=== PATIENT | male | born 1955 | race Caucasian/White ===

== ENCOUNTER 2021-04-22 09:16 | Inpatient (IN) ==
[2021-04-22] MEDS ORDERED: Naloxone 0.4 MG/ML INJ IVP PRN (11:38)
[2021-04-22] MEDS ORDERED: Ondansetron ODT 4 MG TAB.RAPDIS SL PRN (11:38)
[2021-04-22] MEDS ORDERED: Mag Hydrox/Al Hydrox/Simeth 30 ML UDC PO PRN (11:38)
[2021-04-22] MEDS ORDERED: D5% in Water 1,000 ML IVC PRN (12:37)
[2021-04-22] MEDS ORDERED: *HR* Dextrose 50 % in Water (Syg) 50 ML SYRINGE IVP PRN (12:37)
[2021-04-22] MEDS ORDERED: Dextrose Gel 15 GM/37.5 ML TUBE PO PRN ×2 (12:37)
[2021-04-22] MEDS: 0.9 % Sodium Chloride 1,000 ML IVC SCH ×2 (12:54→21:59)
[2021-04-22 12:58] LABS: INR 1.2; Prothrombin Time 13.2 Seconds (9.4-12.1)
[2021-04-22] MEDS: carvediloL 25 MG TABLET PO SCH (17:27)
[2021-04-22] MEDS: *HR* Heparin 5,000 UNIT/ML VIAL SQ SCH (17:27)
[2021-04-22] MEDS: Insulin LISPRO 300 UNITS/3 ML VIAL SUBQ SCH (17:31)
[2021-04-22] MEDS ORDERED: Melatonin 3 MG TABLET PO PRN (21:00)
[2021-04-23] MEDS: Insulin LISPRO 300 UNITS/3 ML VIAL SUBQ SCH ×4 (00:15→17:54)
[2021-04-23 01:04] LABS: Basophils # 0.1 K/mcL (0.0-0.2); Basophils % 1.1 %; Eosinophils # 0.8 K/mcL (0.0-0.6); Eosinophils % 8.3 %; Hematocrit 35.8 % (37.5-50.1); Hemoglobin 11.6 g/dL (12.9-16.9); Immature Granulocytes % 0.5 % (0-4); Lymphocytes # 1.5 K/mcL (0.6-4.6); Lymphocytes % 16.6 %; Mean Corpuscular HGB Conc 32.4 g/dL (31.6-35.5); Mean Corpuscular Volume 98.6 fL (83.0-100.0); Monocytes # 0.6 K/mcL (0.0-1.3); Monocytes % 6.8 %; Neutrophils # 6.2 K/mcL (1.6-8.9); Platelet Count 237 K/mcL (140-400); Red Blood Count 3.63 M/mcL (4.19-5.50); Segmented Neutrophils % 66.7 %; White Blood Count 9.3 K/mcL (4.3-11.1)
[2021-04-23 01:20] LABS: Alanine Aminotransferase 10 Units/L (7-52); Albumin 3.5 g/dL (3.5-5.7); Albumin/Globulin Ratio 1.3 (1.1-2.2); Alkaline Phosphatase 181 Units/L (34-104); Aspartate Amino Transferase 31 Units/L (13-39); BUN/Creatinine Ratio 4 (6-26); Bilirubin,Total 0.7 mg/dL (0.3-1.0); Blood Urea Nitrogen 3 mg/dL (8-23); Calcium 8.6 mg/dL (8.6-10.3); Carbon Dioxide 24 mEq/L (23-29); Chloride 107 mEq/L (98-107); Globulin 2.8 g/dL (2.4-3.5); Glucose 94 mg/dL (70-105); Osmolality,Calculated 278 (280-300); Potassium 3.8 mEq/L (3.5-5.1); Sodium 136 mEq/L (136-145); Total Protein 6.3 g/dL (6.4-8.9); eGFR For African Americans > 60 (> 60); eGFR For Non-African Americans > 60 (> 60)
[2021-04-23] MEDS: *HR* Heparin 5,000 UNIT/ML VIAL SQ SCH ×2 (06:18→18:14)
[2021-04-23] MEDS: amLODIPine 5 MG TABLET PO SCH (08:19)
[2021-04-23] MEDS: carvediloL 25 MG TABLET PO SCH ×2 (08:19→18:13)
[2021-04-23] MEDS: Aspirin Enteric Coated 81 MG Tablet PO SCH (08:20)
[2021-04-23] MEDS: Cyanocobalamin (B-12) 1,000 MCG TABLET PO SCH (08:20)
[2021-04-23] MEDS ORDERED: *HR* FentaNYL (PF) 100 MCG/2 ML VIAL IVP ONE (11:09)
[2021-04-23] MEDS ORDERED: *HR* Midazolam HCl 2 MG/2 ML VIAL IVP ONE (11:09)
[2021-04-23] MEDS ORDERED: *HR* Propofol 200 MG/20 ML VIAL IVP ONE (12:45)
[2021-04-23] MEDS ORDERED: *HR* Succinylcholine 200 MG/10 ML VIAL IVP ONE (12:48)
[2021-04-23] MEDS ORDERED: *HR* Rocuronium Bromide 50 MG/5 ML VIAL ONE (12:48)
[2021-04-23] MEDS ORDERED: Lidocaine -MPF 2% 5 ML VIAL ONE (12:48)
[2021-04-23] MEDS ORDERED: Lidocaine -MPF 4% 5 ML AMPUL ONE (13:06)
[2021-04-23] MEDS ORDERED: Ondansetron 4 MG/2 ML VIAL ONE (13:50)
[2021-04-23] MEDS: *HR* OxyCODONE ER (12 HR) 10 MG TABLET PO SCH (18:13)
[2021-04-23] MEDS ORDERED: polyethylene glycoL 3350 17 GM POWD.PACK PO PRN (18:41)
[2021-04-23] MEDS ORDERED: Insulin LISPRO 300 UNITS/3 ML VIAL SUBQ SCH (21:00)
[2021-04-24 03:25] LABS: Basophils # 0.1 K/mcL (0.0-0.2); Basophils % 0.6 %; Eosinophils % 0.4 %; Hematocrit 33.4 % (37.5-50.1); Hemoglobin 10.8 g/dL (12.9-16.9); Immature Granulocytes % 0.6 % (0-4); Lymphocytes # 0.8 K/mcL (0.6-4.6); Lymphocytes % 10.1 %; Mean Corpuscular HGB Conc 32.3 g/dL (31.6-35.5); Mean Corpuscular Hemoglobin 32.1 pg (28.0-33.3); Mean Corpuscular Volume 99.4 fL (83.0-100.0); Mean Platelet Volume 10.1 fL (9.4-12.4); Monocytes # 0.4 K/mcL (0.0-1.3); Monocytes % 5.3 %; Neutrophils # 6.9 K/mcL (1.6-8.9); Platelet Count 251 K/mcL (140-400); Red Blood Count 3.36 M/mcL (4.19-5.50); Red Cell Distribution Width 14.8 % (11.5-14.5); White Blood Count 8.3 K/mcL (4.3-11.1)
[2021-04-24 03:44] LABS: BUN/Creatinine Ratio 9 (6-26); Blood Urea Nitrogen 6 mg/dL (8-23); Carbon Dioxide 22 mEq/L (23-29); Chloride 105 mEq/L (98-107); Glucose 98 mg/dL (70-105); Magnesium 1.8 mg/dL (1.6-2.6); Osmolality,Calculated 280 (280-300); Phosphorous 3.9 mg/dL (2.7-4.5); Potassium 4.1 mEq/L (3.5-5.1); Sodium 136 mEq/L (136-145); eGFR For African Americans > 60 (> 60); eGFR For Non-African Americans > 60 (> 60)
[2021-04-24] MEDS: *HR* OxyCODONE ER (12 HR) 10 MG TABLET PO SCH (05:48)
[2021-04-24] MEDS: *HR* Heparin 5,000 UNIT/ML VIAL SQ SCH (05:49)
[2021-04-24 07:28] VITALS: BP 152/74; PULSE 55; TEMP 98.1; O2SAT 94
[2021-04-24] MEDS: Insulin LISPRO 300 UNITS/3 ML VIAL SUBQ SCH (08:58)
[2021-04-24] MEDS: amLODIPine 5 MG TABLET PO SCH (09:03)
[2021-04-24] MEDS: carvediloL 25 MG TABLET PO SCH (09:03)
[2021-04-24] MEDS: Aspirin Enteric Coated 81 MG Tablet PO SCH (09:04)
[2021-04-24] MEDS: Cyanocobalamin (B-12) 1,000 MCG TABLET PO SCH (09:06)
== END 2021-04-24 11:52 | disposition home or self-care (01) | DRG 435 ==
LOC: 3ANU → SUATTDRO 11:38
PROVIDERS: ADMIT Family Medicine; ATTEND Internal Medicine
PROC: IRLIVER (2021-04-23 12:00)
PROC: ENDOEUS (2021-04-23 13:00)

== ENCOUNTER 2021-07-23 05:38 | Inpatient (IN) ==
[2021-07-23] MEDS ORDERED: *HR* LORazepam 2 MG/ML VIAL IVP ONE ×2 (09:20→11:06)
[2021-07-23] MEDS ORDERED: Gadolinium Contrast Agent (WT Based) IV PRN (09:57)
[2021-07-23] MEDS ORDERED: Acetaminophen 325 MG TABLET PO PRN (10:21)
[2021-07-23] MEDS ORDERED: Ondansetron 4 MG/2 ML VIAL IVP PRN (10:21)
[2021-07-23] MEDS ORDERED: Naloxone 0.4 MG/ML INJ IVP PRN (10:21)
[2021-07-23] MEDS ORDERED: *HR* Dextrose 50 % in Water (Syg) 50 ML SYRINGE IVP PRN (13:15)
[2021-07-23] MEDS ORDERED: D5% in Water 1,000 ML IVC PRN (13:15)
[2021-07-23] MEDS ORDERED: Dextrose Gel 15 GM/37.5 ML TUBE PO PRN ×2 (13:15)
[2021-07-23] MEDS ORDERED: *HR* LORazepam 2 MG/ML VIAL IVP PRN ×2 (13:15)
[2021-07-23] MEDS: *HR* LORazepam 2 MG/ML VIAL IVP PRN (17:37)
[2021-07-23] MEDS ORDERED: Thiamine (B-1) 100 MG, Folic Acid 1 MG, MVI, adult with vitamin K 10 ML in 0.9 % Sodi... IVPB SCH (18:00)
[2021-07-23] MEDS: Insulin LISPRO 300 UNITS/3 ML VIAL SUBQ SCH (19:32)
[2021-07-24] MEDS: Insulin LISPRO 300 UNITS/3 ML VIAL SUBQ SCH ×4 (02:32→19:40)
[2021-07-24 05:32] LABS: Hematocrit 29.5 % (37.5-50.1); Hemoglobin 9.6 g/dL (12.9-16.9); Mean Corpuscular HGB Conc 32.5 g/dL (31.6-35.5); Mean Corpuscular Hemoglobin 31.2 pg (28.0-33.3); Mean Corpuscular Volume 95.8 fL (83.0-100.0); Mean Platelet Volume 10.9 fL (9.4-12.4); Platelet Count 153 K/mcL (140-400); Red Blood Count 3.08 M/mcL (4.19-5.50); Red Cell Distribution Width 18.1 % (11.5-14.5); White Blood Count 9.4 K/mcL (4.3-11.1)
[2021-07-24 05:53] LABS: BUN/Creatinine Ratio 12 (6-26); Blood Urea Nitrogen 9 mg/dL (8-23); Carbon Dioxide 18 mEq/L (23-29); Chloride 111 mEq/L (98-107); Glucose 109 mg/dL (70-105); Magnesium 1.7 mg/dL (1.6-2.6); Osmolality,Calculated 285 (280-300); Potassium 3.5 mEq/L (3.5-5.1); Sodium 138 mEq/L (136-145); eGFR For African Americans > 60 (> 60); eGFR For Non-African Americans > 60 (> 60)
[2021-07-24] MEDS ORDERED: Cyanocobalamin (B-12) 1,000 MCG/ML VIAL SQ ONE (10:22)
[2021-07-24] MEDS: *HR* Enoxaparin 40 MG/0.4 ML SYRINGE SQ SCH (11:09)
[2021-07-24] MEDS: Thiamine (B-1) 500 MG in 0.9 % Sodium Chloride 50 ML IVPB SCH ×2 (11:10→20:04)
[2021-07-24] MEDS ORDERED: Haloperidol Lactate 5 MG/ML VIAL IVP ONE (14:04)
[2021-07-24] MEDS: Haloperidol Lactate 5 MG/ML VIAL IVP PRN ×2 (18:06→21:56)
[2021-07-25] MEDS: Insulin LISPRO 300 UNITS/3 ML VIAL SUBQ SCH ×4 (02:14→18:14)
[2021-07-25] MEDS: Thiamine (B-1) 500 MG in 0.9 % Sodium Chloride 50 ML IVPB SCH (02:55)
[2021-07-25] MEDS: *HR* LORazepam 2 MG/ML VIAL IVP PRN (03:01)
[2021-07-25 03:29] LABS: Basophils # 0.1 K/mcL (0.0-0.2); Basophils % 1.1 %; Eosinophils # 0.1 K/mcL (0.0-0.6); Eosinophils % 0.6 %; Hematocrit 32.4 % (37.5-50.1); Hemoglobin 10.4 g/dL (12.9-16.9); Immature Granulocytes % 5.7 % (0-4); Lymphocytes # 1.8 K/mcL (0.6-4.6); Lymphocytes % 16.6 %; Mean Corpuscular HGB Conc 32.1 g/dL (31.6-35.5); Mean Corpuscular Volume 96.7 fL (83.0-100.0); Monocytes # 1.4 K/mcL (0.0-1.3); Monocytes % 12.5 %; Neutrophils # 6.9 K/mcL (1.6-8.9); Nucleated Red Blood Cells 0.5 /100 WBC (0); Platelet Count 152 K/mcL (140-400); Red Blood Count 3.35 M/mcL (4.19-5.50); Red Cell Distribution Width 18.6 % (11.5-14.5); Segmented Neutrophils % 63.5 %; White Blood Count 10.8 K/mcL (4.3-11.1)
[2021-07-25 03:46] LABS: BUN/Creatinine Ratio 13 (6-26); Blood Urea Nitrogen 13 mg/dL (8-23); Calcium 9.3 mg/dL (8.6-10.3); Carbon Dioxide 19 mEq/L (23-29); Chloride 107 mEq/L (98-107); Glucose 106 mg/dL (70-105); Osmolality,Calculated 285 (280-300); Potassium 3.7 mEq/L (3.5-5.1); Sodium 137 mEq/L (136-145); eGFR For African Americans > 60 (> 60); eGFR For Non-African Americans > 60 (> 60)
[2021-07-25 03:56] LABS: Anisocytosis 1+ (Not Present); Platelet Estimate Normal (Normal)
[2021-07-25] MEDS: *HR* Enoxaparin 40 MG/0.4 ML SYRINGE SQ SCH (06:05)
[2021-07-25] MEDS ORDERED: Sennosides/Docusate Sodium TABLET PO PRN (09:48)
[2021-07-25] MEDS: hydrOXYzine pamoate 25 MG CAPSULE PO SCH (13:06)
[2021-07-25] MEDS: amLODIPine 5 MG TABLET PO SCH (13:06)
[2021-07-25] MEDS: Haloperidol Lactate 5 MG/ML VIAL IVP PRN (13:40)
[2021-07-25] MEDS: dexAMETHasone 4 MG TABLET PO SCH (14:41)
[2021-07-26] MEDS: hydrOXYzine pamoate 25 MG CAPSULE PO SCH ×3 (00:45→22:07)
[2021-07-26] MEDS: Insulin LISPRO 300 UNITS/3 ML VIAL SUBQ SCH ×4 (00:45→18:17)
[2021-07-26] MEDS: Magnesium Oxide 400 MG TABLET PO SCH ×3 (00:45→22:07)
[2021-07-26] MEDS: dexAMETHasone 4 MG TABLET PO SCH ×4 (00:45→22:07)
[2021-07-26] MEDS: *HR* Enoxaparin 40 MG/0.4 ML SYRINGE SQ SCH (06:48)
[2021-07-26] MEDS: amLODIPine 5 MG TABLET PO SCH (10:23)
[2021-07-26] MEDS: polyethylene glycoL 3350 17 GM POWD.PACK PO SCH (12:19)
[2021-07-26] MEDS: *HR* OxyCODONE ER (12 HR) 10 MG TABLET PO SCH ×2 (12:20→17:44)
[2021-07-27] MEDS: Insulin LISPRO 300 UNITS/3 ML VIAL SUBQ SCH ×2 (00:55→05:54)
[2021-07-27] MEDS: *HR* OxyCODONE ER (12 HR) 10 MG TABLET PO SCH (06:02)
[2021-07-27] MEDS: dexAMETHasone 4 MG TABLET PO SCH (09:17)
[2021-07-27] MEDS: hydrOXYzine pamoate 25 MG CAPSULE PO SCH (09:19)
[2021-07-27] MEDS: polyethylene glycoL 3350 17 GM POWD.PACK PO SCH (09:19)
[2021-07-27] MEDS: Magnesium Oxide 400 MG TABLET PO SCH (09:19)
[2021-07-27] MEDS: amLODIPine 5 MG TABLET PO SCH (09:19)
[2021-07-27 11:01] VITALS: BP 153/80; PULSE 79; TEMP 98.2; O2SAT 100
[2021-07-27] MEDS: *HR* Enoxaparin 40 MG/0.4 ML SYRINGE SQ SCH (11:16)
== END 2021-07-27 11:00 | disposition home health service (06) | DRG 70 ==
LOC: 3NENU → SUATTDRO 08:48
PROVIDERS: ADMIT Internal Medicine; ATTEND Student in an Organized Health Care Education/Training Program